=== PATIENT | male | born 1985 | race Caucasian/White ===

== ENCOUNTER 2023-09-08 19:51 | Emergency (ER) | payer SELFPAY ==
[2023-09-08] VITALS (11 sets, daily range): BP systolic 122–153; BP diastolic 69–119
[2023-09-08] MEDS ORDERED: TAMSULOSIN0.4 MG PO ×2 (20:13→22:18)
[2023-09-08] MEDS ORDERED: BUPROPION HCL100 M2 PO (20:14)
[2023-09-08] MEDS ORDERED: PROZAC10 MG PO (20:15)
[2023-09-08 21:15] LABS: URINE BILIRUBIN - DIPSTICK Negative (NEGATIVE); URINE BLOOD DIPSTICK Negative (NEGATIVE); URINE COLOR Yellow; URINE GLUCOSE - DIPSTICK Negative (NEGATIVE); URINE KETONE Negative (NEGATIVE); URINE LEUK ESTERASE Negative (NEGATIVE); URINE NITRITE - DIPSTICK Negative (Negative); URINE PROTEIN - DIPSTICK Negative (NEG-TRACE); URINE UROBILINOGEN - DIPSTICK 0.2 E.U./dL (0.2)
== END 2023-09-08 23:07 | disposition home or self-care (01) | DRG 696 ==
LOC: ED 19:51
PROVIDERS: Family Medicine
DX: R35.0 Frequency of micturition (principal)